=== PATIENT | female | born 1940 | race Caucasian/White ===

== ENCOUNTER 2021-01-02 08:28 | Emergency (ER) | payer MEDICARE, BC ==
[2021-01-02 09:32] LABS: #Eosinphils 0.5 10x3/uL (0.0-0.5); #Monocytes 0.5 10x3/uL (0.0-1.1); #Neutrophils 7.2 10x3/uL (1.5-8.4); %Basophils 0.2 % (0.0-2.0); %Eosinophils 5.4 % (0.0-6.0); %Lymphocytes 4.6 % (18.0-47.0); %Monocytes 5.8 % (0.0-10.0); %Neutrophils 83.6 % (40.0-75.0); Hemoglobin 12.8 g/dL (12.0-15.5); Mean Corpuscular HGB CONC 32.2 g/dL (32.0-36.0); Mean Corpuscular Hemoglobin 30.1 pg (27.0-33.0); Mean Corpuscular Volume 93.6 fl (81.6-98.3); Mean Platelet Volume 11.7 fl (7.4-10.4); Platelet Count 106 10x3/uL (150-450); Red Blood Cell (RBC) Count 4.25 10x6/uL (3.90-5.03); White Blood Cell (WBC) Count 8.6 10x3/uL (3.5-10.5)
[2021-01-02 09:42] LABS: INR-International Normal Ratio 0.9; PTT 25.7 sec (22.0-33.0); Prothrombin Time 10.2 sec (9.5-12.1)
[2021-01-02 09:53] LABS: Platelet Clumps MODERATE
[2021-01-02 09:54] LABS: Platelet Morphology Comment Appears Adequate; RBC Morphology Normal
[2021-01-02] MEDS ORDERED: Ketorolac Tromethamine 30 MG/ML VIAL ONE (10:23)
[2021-01-02 13:11] LABS: Anion Gap 16 mmol/L (10-20); BUN (Urea Nitrogen) 7 mg/dL (9.8-20.1); Calc. Creatinine Clearance 0 mL/min (70-130); Carbon Dioxide 23 mmol/L (23-31); Chloride 102 mmol/L (98-107); Potassium 4.7 mmol/L (3.5-5.1); Sodium 136 mmol/L (136-145)
[2021-01-02 13:12] LABS: Calcium 9.3 mg/dL (7.8-10.44); Glucose 105 mg/dL (83-110)
== END 2021-01-02 12:24 | disposition home or self-care (01) ==
LOC: CSHERS 08:28
DX: T63.061A Toxic effect of venom of other North and South American snake, accidental (unintentional), initial encounter (principal); M79.89 Other specified soft tissue disorders; J44.9 Chronic obstructive pulmonary disease, unspecified; F17.200 Nicotine dependence, unspecified, uncomplicated
CPT/HCPCS: 80048; 82550; 83874; 83880; 85025; 85384; 85610; 85730; 96374; J1885

== ENCOUNTER 2022-08-03 07:39 | Outpatient (CLI) | payer MEDICARE, BC | END 2022-08-03 07:40 | disposition home or self-care (01) | LOC: CSHULT 07:39 | PROVIDERS: ATTEND Physician Assistant Medical | DX: K58.2 Mixed irritable bowel syndrome (principal) | CPT/HCPCS: 76700 ==

== ENCOUNTER 2023-02-19 09:01 | Outpatient (CLI) | payer MEDICARE, BC | END 2023-02-19 09:02 | disposition home or self-care (01) | LOC: CSHCT 09:01 | PROVIDERS: ATTEND Internal Medicine | DX: Z12.2 Encounter for screening for malignant neoplasm of respiratory organs (principal); F17.218 Nicotine dependence, cigarettes, with other nicotine-induced disorders; R91.8 Other nonspecific abnormal finding of lung field | CPT/HCPCS: 71271 ==

== ENCOUNTER 2023-05-09 14:25 | Outpatient (CLI) | payer MEDICARE, BC | END 2023-05-09 14:26 | disposition home or self-care (01) | LOC: CSHCP 14:25 | PROVIDERS: ATTEND Internal Medicine | DX: R91.1 Solitary pulmonary nodule (principal); R94.2 Abnormal results of pulmonary function studies | CPT/HCPCS: 94060; 94664; 94726; 94729; 94760 ==